=== PATIENT | female | born 1965 | race Caucasian/White ===

== ENCOUNTER → 2019-06-14 | Outpatient (CLI) | payer BC, SELFPAY ==
[2019-06-14 10:03] LABS: Absolute Lymphocyte Count 2.92 X10^3/uL (0.83-4.51); Absolute Neutrophil Count 5.9 X10^3/uL (2.0-7.7); Basophil# 0.13 X10^3/uL; Basophil% 1.3 % (0-1); Hematocrit 42.3 % (37-47); Hemoglobin 13.9 g/dL (12.0-15.0); Lymphocyte # 2.92 X10^3/ul (4.0); Lymphocyte % 28.8 % (19-41); Mean Corp Hgb Conc 32.9 g/dL (32-36); Mean Corpuscular Hgb 31.2 pg (27.0-32.0); Mean Corpuscular Volume 95.1 fL (81-99); Mean Platelet Vol. 10.6 fl (6.2-12.0); Monocyte# 0.89 X10^3/uL; Monocyte% 8.8 % (0-10); NRBC Flagged by Analyzer 0 % (0-5); Neutrophil # 5.86 X10^3/uL (2.7-7.7); Neutrophil % 57.8 % (47-70); Platelet Count 260 K/mm3 (150-450); RBC Distribution Width CV 12.9 % (11.6-14.6); RBC Distribution Width SD 45.3 fl (35.1-43.9); Red Blood Count 4.45 M/mm3 (4.2-5.4); White Blood Count 10.1 K/mm3 (4.4-11.0)
[2019-06-14 10:42] LABS: AST(SGOT) 11 U/L (15-37); Alanine Aminotransfer ALT/SGPT 18 U/L (13-56); Albumin, Serum 3.5 g/dL (3.2-5.0); Alkaline Phosphatase 75 U/L (45-117); Anion Gap 4 (5-15); BUN 12 mg/dL (7-18); BUN/Creat Ratio 17.2 RATIO (10-20); Calcium,Total 8.5 mg/dL (8.5-10.1); Chloride 106 mmol/L (98-107); EST Glomerular Filtration Rate 94 mL/min (>60); Est Glom Filt Rate - Afr Amer 113 mL/min (>60); Globulin 3.4 g/dL (2.2-4.2); Glucose 92 mg/dL (74-106); Potassium 3.9 mmol/L (3.5-5.1); Protein, Total 6.9 g/dL (6.4-8.2); Sodium Level 139 mmol/L (136-145)
== END | disposition home or self-care (01) ==
LOC: MFPLAB 09:34
PROVIDERS: Family Provider Family Medicine; PCP Family Medicine; Referring Provider Family Medicine; Visit Provider Family Medicine
DX: Z01.818 Encounter for other preprocedural examination (principal)
CPT/HCPCS: 36415; 80053; 85025

== ENCOUNTER 2019-06-30 05:51 | Day surgery (SDC) | payer BC, SELFPAY ==
[2019-06-30 06:15] VITALS: BP 109/74; PULSE 55; RESP 14; TEMP 37.1; O2SAT 99; BMI 25.0
[2019-06-30] MEDS: Lactated Ringers 1,000 ML 100 ML IV ×2 (06:30→09:40)
[2019-06-30] MEDS: Cefazolin 2 GM in 0.9% Normal Saline 100 ML IV (07:30)
--- NOTE | 2019-06-30 07:30 | BUN_PTH ---
PATIENT: RAGHAV FERRARO [place] [facility] [place][id number] AGE/SX: 53/F ROOM: RE06/30/[address]: Dr. Shemar Augustin DPM : 1965 BED: DIS: 06/30/2019 SPEC #: [id number] RECD: 06/30/19 13:43 STATUS: ANGELINAJaime REVandana #: [id number] NIR: 06/30/19 07:[address]: Shemar Augustin DEPT: SURGICAL PATHOLOGY RECD BY: Teofilo Yates ENTERED: 06/30/19 14:00 SP TYPE: ANALISA RIVERA DR: Out of [facility] Doctor Tissues: Bony tissue, NOS Procedures: Decalcification bone/plaque Surgery Specimen Level IV HEADER OPERATION: First metatarsal cuneiform Lapidus bunionectomy arthrodesis PRE-OP DIAGNOSIS: Bunion TISSUE SUBMITTED: Analisa MICROSCOPIC DIAGNOSIS Bunion, first metatarsal, excision: Osseocartilaginous tissue with reparative changes consistent with bunion. AM:susan 07/05/19 MICROSCOPIC DESCRIPTION Slides are reviewed. GROSS DESCRIPTION Received in fixative is one container labeled with the patient's name and designated analisa. The specimen consists of three irregular fragments of pink-goldman bone that in aggregate measure 2.5 x 2.5 x 0.2 cm. The specimen is submitted in its entirety in one cassette after decalcification. / AM:susan 06/30/19 TC:5 CPT: 79125, 41969
--- NOTE | 2019-06-30 07:30 | RAD_ITS ---
STUDY: X-RAY - RIGHT FOOT CLINICAL: Female, 53 years old. Right foot bunionectomy TECHNIQUE: 2 view(s) of the foot. COMPARISON: None. FINDINGS: There is metallic plate and screw following bunionectomy along the medial, proximal first metatarsal and medial cuneiform. There is anatomic alignment. The joint spaces are maintained. RAD/Foot 2 Views IMPRESSION: Postbunionectomy. Electronically Signed: Tram Romero, at 10:15 EDT Tel , Service support ,
[2019-06-30] MEDS: Bupivacaine Mpf 0.5% 30 ML VIAL (09:20)
--- NOTE | 2019-06-30 09:38 | DCINST_ITS ---
Discharge Diet: Light diet - advance as tolerated Discharge Activity: May Not Drive, Use Crutches Weight Bearing Status: No weight bearing - No weightbearing right foot Keep extremity elevated above heart level: Right Leg - Keep right foot elevated using pillows at or above chest level for at least 50 minutes of every hour Call your doctor if your incision/area has: Continuous Slow Oozing, Sudden Increased Bleeding, Foul Smelling Discharge Call your doctor if you observe: Fever of 101 or Higher, Shortness of breath, Chest pain, Increased palpitations (irregular heartbeat), Calf discomfort, Uncontrolled pain Cleanse incision/area with: Do not get Incision Wet, Keep Dressing Clean & Dry Additional Instructions: May also take Ibuprofen 400mg by mouth every 6 hours as needed for pain Allergies/Adverse Reactions: Allergies No Known Allergies Allergy (Verified 06/30/19 06:13) Medications to take at Discharge Bupropion HCl [Bupropion Xl] 150 mg PO DAILY 06/23/19 Fluoxetine [Prozac] 20 mg PO DAILY 06/23/19 Multivit-Min/Iron/Folic/Lutein [Centrum Silver Women Tablet] 1 ea PO DAILY 06/23/19 Oxycodone HCl/Acetaminophen [Percocet 5/325] 1 - 2 tab PO Q6H PRN PRN 3 Days #30 tab 06/30/19 The following prescriptions were given: Oxycodone HCl/Acetaminophen [Percocet 5/325] 1 - 2 tab PO Q6H PRN PRN 3 Days #30 tab PRN Reason: Pain Prescription Printed Primary Care Physician: JOLLY HANKINS [Other] Test Results: Test results from this visit will be discussed in further detail at your follow- up appointment, if applicable. Please Follow Up With: Shemar Augustin DPM When: within 1 week, sooner if needed
--- NOTE | 2019-06-30 09:40 | PCM.OPRPT ---
Report of Operation Date of Procedure: 06/30/19 Pre-Operative Diagnosis: Hallux valgus bunion with instability right foot Post-Operative Diagnosis: Same Surgery/Procedure Performed:: 1st metatarsal cuneiform arthrodesis bunionectomy, right foot termite control technician: yes - Dr. Kalin Russo Type of Anesthesia:: General, Local Specimen's removed: Bunion from right foot sent to pathology Estimated Blood Loss (mL): 1mL Description of Procedure: Indications: This is a 53 year old female with history of chronic symptomatic right hallux valgus bunion pain with 1st metatarsal phalangeal joint degenerative changes despite nonsurgical care. The 1st metatarsal head was dorsiflexed and limited range of motion of the 1st metatarsal phalangeal joint. She elected to under go surgical intervention - 1st metatarsal cuneiform lapidus arthrodesis bunionectomy. This was discussed with her in great detail, reviewed the procedures, as well as the rationale of the procedures with her in great detail. We discussed and reviewed the possible benefits vs risks/potential complications. The estimated healing/recovery time and protocol were reviewed with her in detail. Reviewed the goals and the expectations. She expressed understanding and agreement and elected to proceed forward with surgical intervention as noted above. The consent forms were reviewed with her and she freely signed them. All of her questions were answered. No guarantees were given or implied. She was cleared from medical standpoint to proceed with surgery. Also importance of smoking/tobacco cessation reviewed and discussed with patient, who agreed. Operative Procedure: The patient was brought back into the operating room and was placed on the operating table in the supine position. Patient was carefully secured to the operating room table with a safety belt around her waist. A time out was performed and the patient was properly identified and the surgical plan was confirmed. The patient received IV antibiotic prophylaxis - 2g of Ancef. The patient received spinal anesthesia per the anesthesiologist. A well padded pneumatic tourniquet was applied around her right ankle. The right foot was scrubbed, prepped, and draped in the usual aseptic fashion. Attention was directed to the right foot, there was noted to be hallux valgus bunion w/ instability of the 1st ray, along with dorsiflex 1st ray. The right foot was elevated for 3 minutes and the right ankle pneumatic tourniquet was inflated to 250mmHg. A total of 10 mL of a 50/50 mixture of 1% Lidocaine plain and 0.5% Bupivacaine plain was given as a lock block around the surgical site (1st ray block). A linear longitudinal skin incision was medially along the medial 1st metatarsal cuneiform joint as well as overlying the 1st metatarsal phalangeal joint. This was done using a 15 blade. Careful dissection was completed down to the capsule of the 1st metatarsal cuneiform joint, and it was incised using a 15 blade and partially reflected exposing the joint surfaces. All cartilage from the 1st metatarsal cuneiform joint surfaces (posterior aspect of the base of the 1st metatarsal and the anterior aspect of the medial cuneiform) were debrided away and was removed down to bleeding bone. This was done with a curette as well as a powered rasp and saw, being sure not to cause osteonecrosis. The site was flushed out with copious amounts of normal saline solution. The surfaces were fenestrated using a powered drill to aid fusion. The 1st metatarsal was reduced into normal position. The site was fixated use rigid open reduction internal fixation, using 1 Arthrex plantar plate, using a total of 4 locking screws and 1 nonlocking compression screw across the fusion site. There was very good compression and bone to bone contract with the prepped fusion site, in good alignment. The fusion site was rigid and very stable. This was checked and confirmed with intraoperative fluoroscopy. There was noted to be a residual medial and dorsal eminence to the 1st metatarsal head. Careful dissection was completed down to the 1st metatarsal phalangeal joint capsule and it was incised, it was partially reflected. There was noted to be degenerative changes to the dorsal and medial 1st metatarsal head. The medial and dorsal eminence was resected using a powered sagittal saw removing the nonviable cartilage from these sites in process, the resected bone was sent to pathology. There was was now normal range of motion to the 1st metatarsal phalangeal joint. There was smooth normal gliding range of motion of the 1st metatarsal phalangeal joint at this time with normal alignment. The joint was in good alignment. The surgical site was flushed out with copious amounts of normal saline solution. Tissues were healthy and viable at this time. The subcutaneous tissue layers were reapproximated using 4-0 Vicryl and the skin was reapproximated using 4-0 Monocryl. Cavailon was painted to the edges of the sutured skin incision and steristrips were applied across the sutured skin incision. A total of 10 mL of a 50/50 mixture of 1% Lidocaine plain and 0.5% Bupivacaine plain was given as a lock block around the surgical site for further pain control. The pneumatic tourniquet was deflated at 99 minutes, there was immediate return of warmth and perfusion to the foot and to all toes on the foot with normal temperature gradient and CFT < 2 seconds to all toes once the tourniquet was deflated. A dressing was applied which consisted of betadine soaked adaptic, 4x4 gauze, kerlix, and an mauri bandage. Of note, all vital structures including all vital neurovascular and tendon structures were properly identified, protected, and retracted as necessary throughout the above operative procedures. The anterior tibial tendon was left intact. The patient tolerated the above operative procedures well at the anesthesia well with no complication. The patient was transported from the operating room to the recovery room with vital signs stable and in good condition. Post operative orders were placed. Post operative instructions were reviewed with her and her famile who was with her. No weightbearing right foot foot, keep right foot elevated for at least 50 minutes of every hour, keep dressing and splint clean, dry and intact. Post operative xrays were obtained in the recovery room (DP, Oblique, and lateral foot) - there was again noted to be 1st metatarsal cuneiform arthrodesis bunionectomy in good position, with joint surfaces in good alignment and good bone to bone contract with intact hardware; no acute problems or complications seen. Patient was prescribed Percocet for pain control. Patient to follow up with me in office within 1 week, sooner if needed. Grafts/Implants Used: 1 arthrex plantar lapidus plate and screws - Complications None
[2019-06-30 09:42] VITALS: BP 109/74; BP 125/78; PULSE 61; RESP 14; TEMP 36.4; O2SAT 100
[2019-06-30 09:45] VITALS: BP 109/74; BP 116/82; PULSE 59; RESP 16; O2SAT 98
[2019-06-30 10:00] VITALS: BP 109/74; BP 121/77; PULSE 58; RESP 16; O2SAT 96
[2019-06-30 10:01] VITALS: BP 109/74; BP 117/71; PULSE 59; RESP 16; O2SAT 99
--- NOTE | 2019-06-30 10:09 | RAD_ITS ---
STUDY: X-RAY - RIGHT FOOT CLINICAL: Female, 53 years old. Post op TECHNIQUE: 3 view(s) of the foot. COMPARISON: None. FINDINGS: There is metallic plate and screw following bunionectomy along the medial, proximal first metatarsal and medial and lateral cuneiforms. There is anatomic alignment. The joint spaces are maintained. There is postoperative subcutaneous emphysema along the dorsal soft tissues. RAD/Foot min 3 Views IMPRESSION: Postbunionectomy. Electronically Signed: Tram Romero, at 10:38 EDT Tel , Service support ,
[2019-06-30 11:11] VITALS: BP 109/74
== END 2019-06-30 11:20 | disposition home or self-care (01) ==
LOC: SDC 05:52 → AC 05:54
PROVIDERS: Referring Provider Podiatrist; Visit Provider Podiatrist
PROC: (CPT 28292; principal; 2019-06-30 07:15)
DX: M20.11 Hallux valgus (acquired), right foot (principal); F17.210 Nicotine dependence, cigarettes, uncomplicated; F41.9 Anxiety disorder, unspecified; F32.9 Major depressive disorder, single episode, unspecified; Z79.899 Other long term (current) drug therapy
CPT/HCPCS: 28297; 73620; 73630; 76000; 88305; 88311; C1713; J7120; J2405